=== PATIENT | male | born 1960 | race Hispanic/Latino ===

== ENCOUNTER 2017-10-23 00:17 | Emergency (ER) | payer OTHER ==
[~2017-10-23] VITALS: Ht 177.8 cm; Wt 95.3 kg
--- NOTE | 2017-10-23 00:36 | ED GI/GU/ABDOMINAL COMPLAINT ---
History of Present Illness General Chief Complaint: Abdominal Pain/Flank Pain Stated Complaint: LT SIDE FLANK/ABD PAIN DENIES CP DENIES N/V/D Source: patient Exam Limitations: no limitations Vital Signs & Intake/Output Vital Signs & Intake/Output Vital Signs Date Time Temp Pulse Resp B/P B/P Pulse O2 O2 Flow FiO2 Mean Ox Delivery Rate 10/23 0329 98.6 79 20 139/81 95 Room Air 10/23 0042 98.9 101 20 156/99 97 Room Air Allergies Coded Allergies: ibuprofen (From [facility]) (Mild, HIVES 10/23/17) Reconcile Medications Ondansetron (Zofran Odt) 4 MG TAB.RAPDIS 1 TAB SL TID PRN nausea Oxycodone HCl/Acetaminophen (Percocet 5-325 MG Tablet) 5 MG-325 MG TABLET 1 TAB PO 4XDP PRN PAIN TEN...[id number] Tamsulosin HCl (Flomax) 0.4 MG CAP.ER.24H 1 CAP PO DAILY kidney stones Triage Nurses Notes Reviewed? yes Duration: hour(s): Timing: recent history Quality/Severity: cramping Location: left flank Radiation: LLQ Activities at Onset: none Prior Abdominal Problems: none Modifying Factors: Worsens With: palpation. Associated Symptoms: abdominal pain HPI: 57 yo gentleman in prior good health presents with left flank pain that began this morning, "and now the pain has worsened... it's now in my left lower abdomen." He notes mild nausea, without fever, chills, diarrhea. "It finch when I urinate... or at least I feel somthing funny." He has no fever, chills, dyspnea, chest pain. He is otherwise well. Past History Travel History Traveled to [place] past 21 day No Medical History Any Pertinent Medical History? 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 No Review of Systems Review of Systems Constitutional: Reports: no symptoms. EENTM: Reports: no symptoms. Respiratory: Reports: no symptoms. Cardiovascular: Reports: no symptoms. GI: Reports: no symptoms. Genitourinary: Reports: no symptoms. Musculoskeletal: Reports: no symptoms. Skin: Reports: no symptoms. Neurological/Psychological: Reports: no symptoms. Hematologic/Endocrine: Reports: no symptoms. Immunologic/Allergic: Reports: no symptoms. All Other Systems: Reviewed and Negative Physical Exam Physical Exam General Appearance: well developed/nourished, mild distress Head: atraumatic, normal appearance Eyes: Bilateral: normal appearance. Ears, Nose, Throat, Mouth: hearing grossly normal, moist mucous membrane Neck: normal inspection, supple, full range of motion, normal alignment Respiratory: normal breath sounds, chest non-tender, no respiratory distress, quiet respiration, lungs clear Cardiovascular: regular rate/rhythm Gastrointestinal: normal bowel sounds, soft, non-tender, no organomegaly Back: normal inspection Extremities: normal range of motion Neurologic/Psych: no motor/sensory deficits, awake, alert, oriented x 3 Skin: intact, normal color, warm/dry Core Measures ACS in differential dx? No Sepsis Present: No Sepsis Focused Exam Completed? No Progress Differential Diagnosis: appendicitis, hepatitis, pancreatitis, ureterolithiasis, UTI/pyelo Plan of Care: Orders Procedure Date/time Status CT ABD & PELVIS W/O IV CONTRAS 10/23 004 Active URINALYSIS 10/23 29 Complete TROPONIN LEVEL 10/23 29 Complete LIPASE 10/23 29 Complete LACTIC ACID 10/23 29 Complete HEPATIC FUNCTION PANEL 10/23 29 Complete CBC WITHOUT DIFFERENTIAL 10/23 29 Complete BASIC METABOLIC PANEL 10/23 29 Complete AMYLASE 10/23 29 Complete EKG 10/23 29 Active Laboratory Tests 10/23/17 0334: Urine Color YEL, Urine Clarity HAZY H, Urine pH 6.0, Ur Specific Jackman >= 1.030, Urine Protein TRACE H, Urine Ketones NEG, Urine Nitrite NEG, Urine Bilirubin NEG, Urine Urobilinogen 0.2, Ur Leukocyte Esterase NEG, Ur Microscopic SEDIMENT EXAMINED, Urine RBC 10-15 H, Urine WBC 1-3 H, Ur Epithelial Cells OCCAS, Urine Bacteria RARE H, Hyaline Casts FEW H, Urine Mucus FEW, Urine Hemoglobin MOD H, Urine Glucose NEG 10/23/17 0036: Anion Gap 9, Estimated GFR > 60, BUN/Creatinine Ratio 15.5, Glucose 106 H, Lactic Acid 1.6, Calcium 9.6, Total Bilirubin 0.3, Direct Bilirubin 0, AST 26, ALT 44, Alkaline Phosphatase 96, Troponin I < 0.01, Total Protein 7.1, Albumin 4.3, Amylase 113 H, Lipase 220, CBC w Diff MAN DIFF ORDERED, RBC 5.09, MCV 94.5 H, MCH 32.7 H, MCHC 34.6, RDW 13.9, MPV 8.2, Gran % 58.1, Lymphocytes % 34.3, Monocytes % 4.7, Eosinophils % 2.3, Basophils % 0.6, Absolute Granulocytes 7.2 H, Segmented Neutrophils 50, Absolute Lymphocytes 4.2 H, Lymphocytes 45, Monocytes 4, Absolute Monocytes 0.6, Eosinophils 1, Absolute Eosinophils 0.3, Absolute Basophils 0.1, Platelet Estimate ADEQUATE, Polychromasia 1+, Ovalocytes FEW, Fld Total RBCs Counted 100 Diagnostic Imaging: Viewed by Me: CT Scan. Discussed w/RAD: CT Scan. Initial ED EKG: normal axis, normal intervals, normal p-waves, normal QRS complex, normal sinus rhythm Departure Departure Disposition: HOME OR SELF CARE Condition: Stable Clinical Impression Primary Impression: Kidney stones Secondary Impressions: Renal colic Referrals: Dominik ARRIAGA,John Saldana (PCP/Family) Departure Forms: Customer Survey General Discharge Information Prescriptions: Current Visit Scripts Oxycodone HCl/Acetaminophen (Percocet 5-325 MG Tablet) 1 TAB PO 4XDP PRN PAIN #10 TAB TEN...[id number] Tamsulosin HCl (Flomax) 1 CAP PO DAILY #8 CAP Ondansetron (Zofran Odt) 1 TAB SL TID PRN nausea #10 TAB Comments 10/23/17, 4:18am... pt went to [facility] for ct scan diversion... pt has 2mm kidney stone at left uvj... pt feeling better upon arrival from [facility] benign. pt safe for discharge with percocet/zofran/flomax... pt referred to urologist.
[2017-10-23 01:06] LABS: ABSOLUTE BASOPHIL COUNT 0.1 /CUMM (0.0-0.2); ABSOLUTE EOSINOPHIL COUNT 0.3 /CUMM (0.0-0.7); ABSOLUTE GRANULOCYTE CT 7.2 /CUMM (1.4-6.5); ABSOLUTE LYMPH COUNT 4.2 /CUMM (1.2-3.4); ABSOLUTE MONOCYTE COUNT 0.6 /CUMM (0.10-0.60); BASOPHIL % 0.6 % (0.0-2.0); EOSINOPHIL % 2.3 % (0-5); GRANULOCYTE % 58.1 % (42.2-75.2); HEMATOCRIT 48.1 % (42-52); MEAN CORPUSCULAR HGB 32.7 PG (27.0-31.0); MEAN CORPUSCULAR HGB CONC 34.6 G/DL (33.0-37.0); MEAN CORPUSCULAR VOLUME 94.5 FL (80.0-94.0); MEAN PLATELET VOLUME 8.2 FL (7.4-10.4); PLATELET COUNT 230 /CUMM (130-400); RBC DISTRIBUTION WIDTH 13.9 % (11.5-14.5); RED BLOOD CELL CT 5.09 /CUMM (4.70-6.10); WHITE BLOOD CELL COUNT 12.3 /CUMM (4.8-10.8)
[2017-10-23] MEDS ORDERED: PERCOCET 5-3251 EACH PO (04:17)
[2017-10-23] MEDS ORDERED: ZOFRAN ODT4 M1 SL (04:17)
[2017-10-23] MEDS ORDERED: FLOMAX0.4 M1 PO (04:17)
[2017-10-23 04:40] VITALS: BP 132/80
== END 2017-10-23 04:42 ==
LOC: ERH 00:17
PROVIDERS: Pediatrics
DX: N20.0 Calculus of kidney (principal); N23 Unspecified renal colic
CPT/HCPCS: 81001; 93005; 93010; 96361; 96374; 96375; J1885; J2405